=== PATIENT | male | born 1940 | race African-American/Black ===

== ENCOUNTER 2017-04-21 08:16 | Inpatient (IN) | payer MEDICARE, OTHER ==
[2017-04-21] MEDS ORDERED: SODIUM CHLORIDE 500 ML IV STA ×2 (09:01→10:21)
--- NOTE | 2017-04-21 09:01 | PDOC ---
History of Present Illness - General Chief Complaint: Lightheaded Stated Complaint: FALL Time Seen by Provider: 04/21/17 08:34 History Source: Patient - History of Present Illness Presenting Symptoms: Near-Syncope Past History - Past Medical History Allergies/Adverse Reactions: Allergies Allergy/AdvReac Type Severity Reaction Status Date / Time No Known Allergies Allergy Verified 04/21/17 09:43 Home Medications: Ambulatory Orders NK [No Known Home Medication] 04/21/17 Cardiac Disorders: Yes COPD: No - Suicide/Smoking/Psychosocial Hx Smoking History: Current every day smoker Have you smoked in the past 12 months: Yes Number of Cigarettes Smoked Daily: 20 Information on smoking cessation initiated: No Hx Alcohol Use: No Drug/Substance Use Hx: No Substance Use Type: None Review of Systems - Review of Systems Constitutional: Yes: Fever Respiratory: Yes: Cough. No: Shortness of Breath, Wheezing Cardiac (ROS): Yes: Lightheadedness. No: Chest Pain, Palpitations ABD/GI: No: Diarrhea, Nausea, Vomiting : No: Dysuria Neurological: Yes: Dizziness. No: Headache, Numbness, Tingling, Weakness *Physical Exam - Vital Signs Last Vital Signs Temp Pulse Resp BP Pulse Ox 97.6 F 120 H 20 126/99 04/21/17 08:32 04/21/17 08:32 04/21/17 08:32 04/21/17 08:32 - Physical Exam General Appearance: Yes: Appropriately Dressed. No: Apparent Distress HEENT: positive: Normal Voice. negative: Scleral Icterus (R), Scleral Icterus ( L) Neck: positive: Supple Respiratory/Chest: positive: Lungs Clear, Normal Breath Sounds. negative: Respiratory Distress Cardiovascular: positive: S1, S2, Tachycardia Gastrointestinal/Abdominal: positive: Soft. negative: Tender Integumentary: positive: Dry, Warm Neurologic: positive: Fully Oriented, Alert, Normal Mood/Affect Heart Score/ECG Review - ECG Intrepretation Comment:: 04/21/17 11:21 Sinus tachycardia ED Treatment Course - LABORATORY CBC & Chemistry Diagram: 04/21/17 09:40 04/21/17 09:40 - ADDITIONAL ORDERS Additional order review: Laboratory Results 04/21/17 09:40 Sodium 133 L Potassium 4.8 Chloride 98 Carbon Dioxide 24 Anion Gap 11 BUN 37 H Creatinine 1.8 H Creat Clearance w eGFR 36.77 Random Glucose 108 H Calcium 8.6 Total Bilirubin 0.8 AST 48 H ALT 29 Alkaline Phosphatase 58 Creatine Kinase 296 Creatine Kinase Index 0.6 CK-MB (CK-2) 1.864 Troponin I < 0.02 Total Protein 7.5 Albumin 3.4 04/21/17 09:22 Influenza Types A,B Antigen (GABRIELLA) - Final Nasopharyngeal Swab - Final 04/21/17 09:40 RBC 4.92 MCV 91.8 MCHC 32.2 RDW 13.7 MPV 8.5 Neutrophils % 84.6 H Lymphocytes % 6.8 L Monocytes % 8.0 Eosinophils % 0.2 Basophils % 0.4 - RADIOLOGY Radiology Studies Ordered: Category Date Time Status HEAD CT WITHOUT CONTRAST [CT] Stat CT Scan 04/21/17 08:56 Ordered CHEST PA & LAT [RAD] Stat Radiology 04/21/17 08:55 Taken Medical Decision Making - Medical Decision Making 04/21/17 08:56 76-year-old male over [id number] history, possible CAD, here with near syncope. Patient reports waking up in his usual state of health this morning and states while shaving at the bathroom sink, he became lightheaded and fell to the ground landing in mostly a sitting position landed up against the wall. Denies hitting head, LOC, headache, nausea, vomiting, visual changes, focal weakness and no chest pain, shortness of breath or wheezing. Denies similar episode in the past. Family member in ED and states since yesterday, patient has had a dry cough with hoarseness and fever of 102. Has since given patient tylenol. Patient denies body aches, nausea, vomiting or diarrhea. See exam Near syncope R/o cardiac vs infectious vs metabolic, less likely neuro Tachy to 120 but afebrile w/ clear chest/lungs otherwise -ekg -cxr -labs -gentle hydration -anticipate admission 04/21/17 11:22 Pt flu A+ w/ creatinine to 1.8. Patient states he has no known history of renal disease. M/l represent SHAUNNA 2/2 dehydration. Will contact PMD and admit 04/21/17 11:57 Case d/w Dr Perez and pt admitted to [facility] as d/w *DC/Admit/Observation/Transfer Diagnosis at time of Disposition: Influenza A Acute renal failure Qualifiers: Acute renal failure type: unspecified Qualified Code(s): N17.9 - Acute kidney failure, unspecified - Discharge Dispostion Condition at time of disposition: Fair Admit: Yes Decision to Admit order Date/Time: Decision to Admit Order Category Date Time Status Decision to Admit to Hospital Routine Admission 04/21/17 11:57 Ordered - Referrals Referrals: Nile Lu MD [Primary Care Provider] - - Patient Instructions - Post Discharge Activity
[2017-04-21 09:48] LABS: MEAN CELL VOLUME 91.8 fl (80-96); MEAN PLT VOLUME 8.5 fl (7.5-11.1)
[2017-04-21 09:54] LABS: BASO % 0.4 % (0-2.0); EOS % 0.2 % (0-4.5); HEMATOCRIT 45.2 % (35.4-49); HEMOGLOBIN 14.5 GM/dL (11.7-16.9); LYMPH % 6.8 % (8-40); MCH 29.5 pg (25.7-33.7); MCHC 32.2 g/dl (32.0-35.9); NEUT % 84.6 % (42.8-82.8); PLATELET COUNT 122 K/MM3 (134-434); RBC 4.92 M/mm3 (4.00-5.60); RDW 13.7 % (11.9-15.9); WHITE BLOOD COUNT 9.2 K/mm3 (4.0-10.0)
[2017-04-21 10:11] LABS: ALBUMIN 3.4 g/dl (3.4-5.0); ANION GAP 11 (8-16); BLOOD UREA NITROGEN 37 mg/dL (7-18); CALCIUM 8.6 mg/dL (8.5-10.1); CHLORIDE 98 mmol/L (98-107); CO2 24 mmol/L (21-32); CREATININE 1.8 mg/dL (0.7-1.3); GLUCOSE,RANDOM 108 mg/dL (74-106); SGPT/ALT 29 U/L (12-78); SODIUM 133 mmol/L (136-145); TOT PROT 7.5 g/dl (6.4-8.2)
[2017-04-21 10:19] LABS: ALK PHOS 58 U/L (45-117); BILIRUBIN,TOTAL 0.8 mg/dL (0.2-1.0)
[2017-04-21 10:20] LABS: POTASSIUM 4.8 mmol/L (3.5-5.1); SGOT/AST 48 U/L (15-37)
[2017-04-21] MEDS ORDERED: OSELTAMIVIR PHOSPHATE 75 MG CAPSULE PO ONE (10:21)
--- NOTE | 2017-04-21 11:57 | PDOC ---
*Physical Exam - Vital Signs Last Vital Signs Temp Pulse Resp BP Pulse Ox 97.6 F 120 H 20 126/99 04/21/17 08:32 04/21/17 08:32 04/21/17 08:32 04/21/17 08:32 ED Treatment Course - LABORATORY CBC & Chemistry Diagram: 04/21/17 09:40 04/21/17 09:40 - ADDITIONAL ORDERS Additional order review: Laboratory Results 04/21/17 09:40 Sodium 133 L Potassium 4.8 Chloride 98 Carbon Dioxide 24 Anion Gap 11 BUN 37 H Creatinine 1.8 H Creat Clearance w eGFR 36.77 Random Glucose 108 H Calcium 8.6 Total Bilirubin 0.8 AST 48 H ALT 29 Alkaline Phosphatase 58 Creatine Kinase 296 Creatine Kinase Index 0.6 CK-MB (CK-2) 1.864 Troponin I < 0.02 Total Protein 7.5 Albumin 3.4 04/21/17 09:22 Influenza Types A,B Antigen (GABRIELLA) - Final Nasopharyngeal Swab - Final 04/21/17 09:40 RBC 4.92 MCV 91.8 MCHC 32.2 RDW 13.7 MPV 8.5 Neutrophils % 84.6 H Lymphocytes % 6.8 L Monocytes % 8.0 Eosinophils % 0.2 Basophils % 0.4 - RADIOLOGY Radiology Studies Ordered: Category Date Time Status HEAD CT WITHOUT CONTRAST [CT] Stat CT Scan 04/21/17 08:56 Ordered CHEST PA & LAT [RAD] Stat Radiology 04/21/17 08:55 Taken *DC/Admit/Observation/Transfer Diagnosis at time of Disposition: Influenza A Acute renal failure Qualifiers: Acute renal failure type: unspecified Qualified Code(s): N17.9 - Acute kidney failure, unspecified - Discharge Dispostion Condition at time of disposition: Fair Admit: Yes - Referrals - Patient Instructions - Post Discharge Activity
[2017-04-21] MEDS ORDERED: OSELTAMIVIR PHOSPHATE 75 MG CAPSULE ONE (12:14)
[2017-04-21 12:59] LABS: N-TERMINAL BNP 343.17 pg/ml (5-450)
[2017-04-21 17:54] LABS: URINE APPEARANCE CLEAR; URINE BILIRUBIN NEGATIVE (NEGATIVE); URINE BLOOD 1+ (NEGATIVE); URINE COLOR LTYELLOW; URINE GLUCOSE (UA) NEGATIVE (NEGATIVE); URINE KETONE TRACE (NEGATIVE); URINE LEUK ESTERASE NEGATIVE (NEGATIVE); URINE NITRITE NEGATIVE (NEGATIVE); URINE UROBILINOGEN NEGATIVE mg/dL (0.2-1.0)
[2017-04-21 17:56] LABS: URINE PROTEIN 2+ (NEGATIVE)
[2017-04-21 18:04] LABS: EPI CELLS RARE /HPF (FEW); URINE BACTERIA FEW /hpf (NONE SEEN); URINE HYALINE CAST 1 /lpf; URINE MUCUS RARE
--- NOTE | 2017-04-21 21:43 | EKG ---
Test Reason : Blood Pressure : / mmHG Vent. Rate : 106 BPM Atrial Rate : 106 BPM P-R Int : 114 ms QRS Dur : 062 ms QT Int : 316 ms P-R-T Axes : 086 -65 063 degrees QTc Int : 419 ms SINUS TACHYCARDIA BIATRIAL ENLARGEMENT LEFT AXIS DEVIATION NONSPECIFIC ST AND T WAVE ABNORMALITY ABNORMAL ECG NO PREVIOUS ECGS AVAILABLE Confirmed by ADELAIDE OLSON MD ([id number]) on 04/21/2017 9:43:25 PM Referred By: Confirmed By:ADELAIDE OLSON MD
[2017-04-21] MEDS ORDERED: ACETAMINOPHEN 325 MG TABLET (FP) PO PRN (21:47)
--- NOTE | 2017-04-21 21:48 | HP ---
Admitting History and Physical - Admission History of Present Illness: 76-year-old male over [id number] history, possible CAD, here with near syncope. Patient reports waking up in his usual state of health this morning and states while shaving at the bathroom sink, he became lightheaded and fell to the ground landing in mostly a sitting position landed up against the wall. Denies hitting head, LOC, headache, nausea, vomiting, visual changes, focal weakness and no chest pain, shortness of breath or wheezing. Denies similar episode in the past. Family member in ED and states since yesterday, patient has had a dry cough with hoarseness and fever of 102. Has since given patient tylenol. Patient denies body aches, nausea, vomiting or diarrhea. See exam - Smoking History Smoking history: Current every day smoker Have you smoked in the past 12 months: Yes Aproximately how many cigarettes per day: 20 - Alcohol/Substance Use Hx Alcohol Use: No Home Medications - Allergies Allergies/Adverse Reactions: Allergies Allergy/AdvReac Type Severity Reaction Status Date / Time No Known Allergies Allergy Verified 04/21/17 09:43 - Home Medications Home Medications: Ambulatory Orders Acetaminophen [Tylenol .Regular Strength -] 650 mg PO Q6H PRN tablet 04/25/17 Amlodipine Besylate [Norvasc -] 10 mg PO DAILY #30 tablet 04/25/17 Aspirin [ASA -] 81 mg PO DAILY tab.chew 04/25/17 Lactose-Reduced Food [Ensure Enlive] 1 bottle PO DAILY #24 bottle 04/25/17 Nicotine Patch [Nicoderm Patch -] 21 mg TD DAILY #14 patch 04/25/17 Oseltamivir Phosphate [Tamiflu -] 30 mg PO BID #3 capsule 04/25/17 Review of Systems - Review of Systems Constitutional: reports: Chills, Fever Cardiovascular: reports: No Symptoms Respiratory: reports: Cough Genitourinary: reports: No Symptoms Physical Examination Vital Signs: Vital Signs Temperature 98.3 F 04/21/17 17:21 Pulse Rate 102 H 04/21/17 17:21 Respiratory Rate 16 04/21/17 17:21 Blood Pressure 158/103 04/21/17 17:21 O2 Sat by Pulse Oximetry (%) 96 04/21/17 17:21 Constitutional: Yes: Calm Cardiovascular: Yes: Regular Rate and Rhythm Respiratory: Yes: Regular, CTA Bilaterally Gastrointestinal: Yes: Normal Bowel Sounds, Soft Labs: CBC, BMP 04/21/17 09:40 04/21/17 09:40 Problem List - Problems (1) Acute renal failure Code(s): N17.9 - ACUTE KIDNEY FAILURE, UNSPECIFIED Qualifiers: Acute renal failure type: unspecified Qualified Code(s): N17.9 - Acute kidney failure, unspecified (2) HTN (hypertension) Code(s): I10 - ESSENTIAL (PRIMARY) HYPERTENSION (3) Syncope Code(s): R55 - SYNCOPE AND COLLAPSE Qualifiers: Encounter type: initial encounter Assessment/Plan Fever/URI Assessment/Plan: Start IV abx/ antipyretics Consult ID Syncope/Acute Renal Failure Assessment/Plan: Continue IVF Monitor Electrolytes BP HTN (hypertension) continue medications
[2017-04-21] MEDS ORDERED: OSELTAMIVIR PHOSPHATE 75 MG CAPSULE PO SCH (22:00)
[2017-04-21] MEDS: DEXTROSE 5%-0.45% SALINE 1,000 ML IV SCH (22:19)
[2017-04-21 22:44] VITALS: BMI 15.5
[2017-04-22 07:25] LABS: BASO % 0.2 % (0-2.0); EOS % 0.1 % (0-4.5); HEMATOCRIT 37.1 % (35.4-49); LYMPH % 17.1 % (8-40); MCH 29.2 pg (25.7-33.7); MCHC 32.5 g/dl (32.0-35.9); MEAN CELL VOLUME 89.8 fl (80-96); MONO % 13.6 % (3.8-10.2); PLATELET COUNT 121 K/MM3 (134-434); RBC 4.13 M/mm3 (4.00-5.60); RDW 13.4 % (11.9-15.9); WHITE BLOOD COUNT 5.3 K/mm3 (4.0-10.0)
[2017-04-22 07:35] LABS: ALBUMIN 2.9 g/dl (3.4-5.0); ANION GAP 10 (8-16); BILIRUBIN,TOTAL 0.6 mg/dL (0.2-1.0); BLOOD UREA NITROGEN 29 mg/dL (7-18); CALCIUM 8.1 mg/dL (8.5-10.1); CHLORIDE 98 mmol/L (98-107); CO2 27 mmol/L (21-32); CREATININE 1.3 mg/dL (0.7-1.3); GLUCOSE,RANDOM 92 mg/dL (74-106); POTASSIUM 4.1 mmol/L (3.5-5.1); SGOT/AST 38 U/L (15-37); SGPT/ALT 22 U/L (12-78); SODIUM 135 mmol/L (136-145); TOT PROT 6.1 g/dl (6.4-8.2)
[2017-04-22 07:36] LABS: ALK PHOS 47 U/L (45-117)
--- NOTE | 2017-04-22 09:33 | CON.CARD ---
Consult Consult Specialty:: Cardiology Referred by:: Dr. Perez Reason for Consultation:: Syncope - History of Present Illness Chief Complaint: "I must have passed out at home" History of Present Illness: 76M w/ h/o Prostate CA s/p seeds, smoker, recently seen in office for evaluation of MALONEY. Echo showed a wall motion abnormality and subsequent stress MIBI revealed low post stress EF for which he was referred fro cath. He missed his appointment at [facility] last week, due to inclement weather. No admitted with syncopal episode at home in setting of cough, fever, + Influenza A. He denies CP, SOB but does have cough. No palps. No edema. No focal neuro deficits. Head CT negative for acute pathology. 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: Alzheimer's, CVA, Dementia, Migraine, Multiple Sclerosis, Peripheral Neuropathy, Parkinson's, Seizure, Syncope, TIA, Vertigo, Other Cardio/Vascular: No: AFIB, Aneurysm, Aortic Insufficiency, Aortic Stenosis, CAD , CHF, Deep Vein Thrombosis, HTN, Hyperlipdemia, [place], Mitral Insufficiency, Mitral Stenosis, Murmur, Pulmonary Hypertension, Other Pulmonary: Yes: COPD Gastrointestinal: No: Ascites, Cancer, Constipation, Crohn's Disease, Diverticulitis, Diverticulosis, Esophageal Varices, Gastritis, GERD, GI Bleed, Hemorrhoids, Hiatal Hernia, Inflamatory Bowel Disease, Irritable Bowel Disease, Pancreatitis, Peptic Ulcer Disease, Ulcerative Colitis, Other Hepatobiliary: No: Cirrhosis, Cholelithiasis, Cholecystitis, Choledocholithiasis , Hepatitis A, Hepatitis B, Hepatitis C, Other Renal/: No: Renal Failure, Renal Inusuff, BPH, Cancer, Hematuria, Hemodialysis , Neurogenic Bladder, Renal Calculi, UTI, Other Heme/Onc: Yes: Other (Prostate CA ) Infectious Disease: No: AIDS, C-Diff, Herpes Zoster, HIV, MRSA, STD's, Tuberculosis, VREF, Other Psych: No: Addictions, Anxiety, Bipolar, Depression, Panic, Psychosis, Schizophrenia, Other Musculoskeletal: No: Bursitis, Chronic low back pain, Hemiparesis, Hemiplegia, Osteoarthritis, Paraplegia, Other Rheumatology: No: Fibromyalgia, Gout, Lupus, Rheumatoid Arthritis, Sarcoidosis, Vasculitis, Other ENT: No: Allergic Rhinitis, Sinusitis, Other Endocrine: No: [place]'s Disease, Lucy's Disease, Diabetes Insipidus, Diabetes Mellitus, Hyperparathyroidism, Hyperthyroidism, Hypothyroidism, Osteopenia, SIADH, Other Dermatology: No: Basal Cell, Cellulitis, Eczema, Melanoma, Psoriasis, Squamous Cell, Other - Past Surgical History Past Surgical History: No: None, AAA Repair, AICD, Amputation, Appendectomy, Arthrosocopy, AV Fistula/Graft, Bariatric Surgery, Breast Biopsy, Bypass, CABG, Carotid Endarterectomy, Cataract Removal, Cholecystectomy, Colectomy, Colonoscopy, Colostomy, Craniotomy, , Cystectomy, Hernia Repair, Hysterectomy, Ileal Conduit, Ileosotomy, Joint Replacement, Kidney Transplant, Laminectomy, Liver Transplant, Mastectomy, Nephrectomy, Oopherectomy, Orchiectomy, Permanent Pacemaker, Prostatectomy, Splenectomy, Stent, Thoracotomy , TURP, Tonsillectomy, Tubal Ligation, Upper Endoscopy, Valve Replacement, Vasectomy, Vein Stripping/Ligation - Alcohol/Substance Use Hx Alcohol Use: Yes (quit 20 years) - Smoking History Smoking history: Former smoker Have you smoked in the past 12 months: Yes Aproximately how many cigarettes per day: 20 If you are a former smoker, when did you quit?: 04/17/2017 - Social History Usual Living Arrangement: With Spouse Place of : [facility] History of Recent Travel: No Home Medications - Allergies Allergies/Adverse Reactions: Allergies Allergy/AdvReac Type Severity Reaction Status Date / Time No Known Allergies Allergy Verified 04/21/17 09:43 - Home Medications Home Medications: Ambulatory Orders NK [No Known Home Medication] 04/21/17 Family Disease History - Family Disease History Family History: Unremarkable (not pertinent to this presentation) Review of Systems Findings/Remarks: see HPI - Review of Systems Constitutional: reports: Malaise, Weakness Eyes: denies: No Symptoms, Blind Spots, Blurred Vision, Double Vision, Eye Pain , Floaters, Photophobia, Recent Change in Vision, Other Cardiovascular: reports: No Symptoms Respiratory: reports: Cough, SOB on Exertion (chronic MALONEY) Gastrointestinal: denies: No Symptoms, Abdominal Pain, Bloating, Constipation, Diarrhea, Dysphagia, Indigestion, Melena, Nausea, Rectal Bleeding, Vomiting, Vomiting Blood, Other Genitourinary: denies: No Symptoms, Burning, Discharge, Dysuria, Flank Pain, Frequency, Hematuria, Incontinence, Lesions, Menses, Pain, Testicular Mass, Testicular Pain, Testicular Swelling, Urgency, Vaginal Bleeding, Other Breasts: denies: No Symptoms Reported, See HPI, Breast Implants, Discharge from Nipple, Lumps, Pain, Skin Changes, Other Musculoskeletal: reports: Muscle Pain Integumentary: denies: No Symptoms, Blister, Bruising, Change in Color, Eczema, Erythema, Incision, Lesions, Lump, Pallor, Pruritis, Rash, Wound, Other Neurological: denies: No Symptoms, Change in LOC, Change in Speech, Confusion, Dizziness, Headache, Incoordination, Numbness, Parasthesia, Pre-Existing Deficit , Seizure, Syncope, Tremors, Unsteady Gait, Weakness, Other Endocrine: denies: No Symptoms, Excessive Sweating, Flushing, Increased Hunger, Increased Thirst, Intolerance to Cold, Intolerance to Heat, Unexplained Weight Gain, Unexplained Weight Loss, Other Hematology/Lymphatic: denies: No Symptoms, Easily Bruised, Excessive Bleeding, Swollen Glands, Other Psychiatric: denies: No Symptoms, Altered Sleep Pattern, Anxiety, Depression, Hallucinations, Panic, Paranoia, Suicidal, Other - Risk Factors Known Risk Factors: Yes: Smoking Vital Signs: Vital Signs Temperature 98.6 F 04/22/17 08:27 Pulse Rate 93 H 04/22/17 08:27 Respiratory Rate 20 04/22/17 08:28 Blood Pressure 130/77 04/22/17 08:27 O2 Sat by Pulse Oximetry (%) 98 04/22/17 08:28 Constitutional: Yes: No Distress, Calm Eyes: Yes: Conjunctiva Clear, EOM Intact HENT: Yes: Atraumatic Neck: Yes: Supple Respiratory: Yes: Rhonchi Gastrointestinal: Yes: Soft Cardiovascular: Yes: Regular Rate and Rhythm JVD: No Carotid Bruit: No PMI: Non-Displaced Heart Sounds: Yes: S1, S2 (RRR) Edema: No Neurological: Yes: Alert, Oriented ...Motor Strength: WNL - Other Data Labs, Other Data: CBC, BMP 04/22/17 05:35 04/22/17 05:35 Troponin, BNP 04/21/17 09:40 Troponin I < 0.02 B-Natriuretic Peptide 343.17 Troponin, BNP 04/21/17 09:40 Troponin I < 0.02 B-Natriuretic Peptide 343.17 NSR, LVH, NSST changes, Left [place]. Biatrial enlargement. Echo: Pending Holter: Other (TELE: NSR, NSST changes, APCs) Imaging - Results Chest X-ray: Report Reviewed, Image Reviewed Cat Scan: Report Reviewed EKG: Image Reviewed Problem List - Problems (1) Influenza A Assessment/Plan: -Supportive care and Rx as per PMD -Blood cultures pending Code(s): J10.1 - FLU DUE TO OTH IDENT INFLUENZA VIRUS W OTH RESP MANIFEST (2) Syncope Assessment/Plan: - in setting of acute Influenza A, fever, pre-renal azotemia -Check orthostatics, gently hydrate -Tele x 24 hours rule out arrhythmia (given h/o cardiomyopathy) Code(s): R55 - SYNCOPE AND COLLAPSE Qualifiers: Encounter type: initial encounter (3) Cardiomyopathy Assessment/Plan: -Referred for outpatient cath, which will be rescheduled to rule out chronic ischemic disease -ASA 81mg daily Code(s): I42.9 - CARDIOMYOPATHY, UNSPECIFIED Qualifiers: Cardiomyopathy type: unspecified Qualified Code(s): I42.9 - Cardiomyopathy , unspecified (4) Acute renal failure Assessment/Plan: -Likely due to dehydration secondary to infection with Influenza A -Renal fxn improved with hydration Code(s): N17.9 - ACUTE KIDNEY FAILURE, UNSPECIFIED Qualifiers: Acute renal failure type: unspecified Qualified Code(s): N17.9 - Acute kidney failure, unspecified Assessment/Plan 76 male with h/o prostate CA, COPD, cardiomyopathy now admitted with a syncopal episode in the setting of acute Influenza A with fever and pre-renal failure secondary to dehydration precipitated by infection. Doubt syncopal episode was cardiac in nature, however, he does have an underlying cardiomyopathy for which outpatient catheterization was recommended and is in the process of being arranged to rule out chronic ischemic disease. REC: Gentle hydration. Supportive care. Tamiflu as per PMD. R/o concurrent bacterial infection: doubtful. 24 hours telemetry to exclude arrhythmia, also unlikely in this setting. 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
[2017-04-22] MEDS: ASPIRIN 81 MG CHEWABLE TABLETS PO SCH (12:55)
[2017-04-22] MEDS: OSELTAMIVIR PHOSPHATE 30 MG CAPSULE PO SCH ×2 (12:55→21:04)
--- NOTE | 2017-04-22 14:22 | CON.ID ---
Consult Consult Specialty:: infectious diseases Referred by:: Reason for Consultation:: influenz,weakness,near syncope - History of Present Illness Chief Complaint: syncope weakness History of Present Illness: 76-year-old male over [id number] history, CAD, came to the ED with near syncope. Patient reports waking up in his usual state of health this morning and states while shaving at the bathroom sink, he became lightheaded and fell to the ground landing in mostly a sitting position landed up against the wall. Denies hitting head, LOC, headache, nausea, vomiting, visual changes, focal weakness and no chest pain, shortness of breath or wheezing. 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, CVA, Dementia, Migraine, Multiple Sclerosis, Peripheral Neuropathy, Parkinson's, Seizure, Syncope, TIA, Vertigo, Other Cardio/Vascular: No: AFIB, Aneurysm, Aortic Insufficiency, Aortic Stenosis, CAD , CHF, Deep Vein Thrombosis, HTN, Hyperlipdemia, [place], Mitral Insufficiency, Mitral Stenosis, Murmur, Pulmonary Hypertension, Other Pulmonary: Yes: COPD Gastrointestinal: No: Ascites, Cancer, Constipation, Crohn's Disease, Diverticulitis, Diverticulosis, Esophageal Varices, Gastritis, GERD, GI Bleed, Hemorrhoids, Hiatal Hernia, Inflamatory Bowel Disease, Irritable Bowel Disease, Pancreatitis, Peptic Ulcer Disease, Ulcerative Colitis, Other Hepatobiliary: No: Cirrhosis, Cholelithiasis, Cholecystitis, Choledocholithiasis , Hepatitis A, Hepatitis B, Hepatitis C, Other Renal/: No: Renal Failure, Renal Inusuff, BPH, Cancer, Hematuria, Hemodialysis , Neurogenic Bladder, Renal Calculi, UTI, Other Infectious Disease: No: AIDS, C-Diff, Herpes Zoster, HIV, MRSA, STD's, Tuberculosis, VREF, Other Psych: No: Addictions, Anxiety, Bipolar, Depression, Panic, Psychosis, Schizophrenia, Other Musculoskeletal: No: Bursitis, Chronic low back pain, Hemiparesis, Hemiplegia, Osteoarthritis, Paraplegia, Other Rheumatology: No: Fibromyalgia, Gout, Lupus, Rheumatoid Arthritis, Sarcoidosis, Vasculitis, Other ENT: No: Allergic Rhinitis, Sinusitis, Other Endocrine: No: Myron's Disease, Lucy's Disease, Diabetes Insipidus, Diabetes Mellitus, Hyperparathyroidism, Hyperthyroidism, Hypothyroidism, Osteopenia, SIADH, Other Dermatology: No: Basal Cell, Cellulitis, Eczema, Melanoma, Psoriasis, Squamous Cell, Other - Past Surgical History Past Surgical History: No: None, AAA Repair, AICD, Amputation, Appendectomy, Arthrosocopy, AV Fistula/Graft, Bariatric Surgery, Breast Biopsy, Bypass, CABG, Carotid Endarterectomy, Cataract Removal, Cholecystectomy, Colectomy, Colonoscopy, Colostomy, Craniotomy, , Cystectomy, Hernia Repair, Hysterectomy, Ileal Conduit, Ileosotomy, Joint Replacement, Kidney Transplant, Laminectomy, Liver Transplant, Mastectomy, Nephrectomy, Oopherectomy, Orchiectomy, Permanent Pacemaker, Prostatectomy, Splenectomy, Stent, Thoracotomy , TURP, Tonsillectomy, Tubal Ligation, Upper Endoscopy, Valve Replacement, Vasectomy, Vein Stripping/Ligation - Alcohol/Substance Use Hx Alcohol Use: Yes (quit 20 years) - Smoking History Smoking history: Former smoker Have you smoked in the past 12 months: Yes Aproximately how many cigarettes per day: 20 If you are a former smoker, when did you quit?: 04/17/2017 - Social History Usual Living Arrangement: With Spouse History of Recent Travel: No Home Medications - Allergies Allergies/Adverse Reactions: Allergies Allergy/AdvReac Type Severity Reaction Status Date / Time No Known Allergies Allergy Verified 04/21/17 09:43 - Home Medications Home Medications: Ambulatory Orders NK [No Known Home Medication] 04/21/17 Review of Systems - Review of Systems Constitutional: reports: Fever Eyes: reports: No Symptoms HENT: reports: No Symptoms Neck: reports: No Symptoms Cardiovascular: reports: No Symptoms Respiratory: reports: Cough, Other Gastrointestinal: reports: No Symptoms Genitourinary: reports: No Symptoms Breasts: reports: No Symptoms Reported Musculoskeletal: reports: No Symptoms Integumentary: reports: No Symptoms Neurological: reports: Other (confusion) Endocrine: reports: No Symptoms Hematology/Lymphatic: reports: No Symptoms Psychiatric: reports: No Symptoms Physical Exam Vital Signs: Vital Signs Temperature 98.6 F 04/22/17 08:27 Pulse Rate 93 H 04/22/17 08:27 Respiratory Rate 20 04/22/17 08:28 Blood Pressure 130/77 04/22/17 08:27 O2 Sat by Pulse Oximetry (%) 98 04/22/17 08:28 Constitutional: Yes: Thin, Other Eyes: Yes: Conjunctiva Clear HENT: Yes: Atraumatic Neck: Yes: Supple, Trachea Midline Cardiovascular: Yes: Regular Rate and Rhythm Respiratory: Yes: Rhonchi, Other (crackles) Gastrointestinal: Yes: Normal Bowel Sounds, Soft Extremities: Yes: Other Labs: CBC, BMP 04/22/17 05:35 04/22/17 05:35 Imaging - Results Chest X-ray: Report Reviewed, Image Reviewed Cat Scan: Report Reviewed, Image Reviewed Assessment/Plan at this moment this patient is not showing any signs of resp infection,but i am very worried looking at this pmhx and also coming in with syncope symptoms influenza a fever near syncope confusion plan will start patient on empiric ceftriaxone await for all cx reports hydration rest as per cardio and primary
[2017-04-22] MEDS: amLODIPine BESYLATE 5 MG TABLET (FP) PO SCH (17:50)
[2017-04-22] MEDS: NICOTINE 21 MG/24 HOURS TOPICAL PATCH TD SCH (17:50)
[2017-04-22] MEDS ORDERED: PT OWN MED DRAWER 7, Y5N ONE (20:57)
[2017-04-22] MEDS ORDERED: CEFTRIAXONE 1 GM in DEXTROSE 5%-WATER - 50 ML IVPB SCH (22:00)
[2017-04-22] MEDS ORDERED: AMOX TR/POT CLAV 500MG/125MG TABLETS (FP) PO ONE (22:15)
[2017-04-22] MEDS: CEFTRIAXONE 1 G/50 ML PREMIX 50 ML IVPB SCH (22:31)
[2017-04-22] MEDS: DEXTROSE 5%-0.45% SALINE 1,000 ML IV SCH (22:36)
--- NOTE | 2017-04-22 23:05 | PN ---
Progress Note, Physician History of Present Illness: No new complaints - Current Medication List Current Medications: Active Medications Acetaminophen (Tylenol -) 650 mg PO Q6H PRN PRN Reason: FEVER Last Admin: 04/22/17 01:39 Dose: 650 mg Amlodipine Besylate (Norvasc -) 5 mg PO DAILY [facility] Last Admin: 04/22/17 17:50 Dose: 5 mg Aspirin (Asa -) 81 mg PO DAILY [facility] Last Admin: 04/22/17 12:55 Dose: 81 mg Dextrose/Sodium Chloride (D5-1/2ns -) 1,000 mls @ 75 mls/hr IV ASDIR [facility] Last Admin: 04/22/17 22:36 Dose: 75 mls/hr CEFTRIAXONE 1 G/50 ML PREMIX (Ceftriaxone 1 Gm-D5w Bag) 50 mls @ 100 mls/hr IVPB DAILY [facility] Last Admin: 04/22/17 22:31 Dose: 100 mls/hr Nicotine (Nicoderm Patch -) 21 mg TD DAILY [facility] Last Admin: 04/22/17 17:50 Dose: 21 mg Oseltamivir Phosphate (Tamiflu -) 30 mg PO BID [facility] Stop: 04/27/17 09:59 Last Admin: 04/22/17 21:04 Dose: 30 mg - Objective Vital Signs: Vital Signs Temperature 97.3 F L 04/22/17 17:00 Pulse Rate 97 H 04/22/17 17:00 Respiratory Rate 20 04/22/17 17:00 Blood Pressure 164/108 04/22/17 17:00 O2 Sat by Pulse Oximetry (%) 98 04/22/17 08:28 Constitutional: Yes: No Distress Cardiovascular: Yes: Regular Rate and Rhythm Respiratory: Yes: Regular, CTA Bilaterally Gastrointestinal: Yes: Normal Bowel Sounds, Soft Labs: CBC, BMP 04/22/17 05:35 04/22/17 05:35 Assessment/Plan Fever/URI Assessment/Plan: Cont IV abx/ antipyretics As per ID Syncope/Acute Renal Failure Assessment/Plan: Continue IVF Monitor Electrolytes BP HTN (hypertension) continue medications
[2017-04-23] MEDS: amLODIPine BESYLATE 10 MG TABLET (FP) PO SCH ×2 (09:30→11:51)
--- NOTE | 2017-04-23 09:40 | PN ---
Progress Note, Physician Chief Complaint: Comfortable, no distress TELE: NSR BP was elevated last evening, responded to Norvasc Was agitated last night, improved with Nicotine patch - Current Medication List Current Medications: Active Medications Acetaminophen (Tylenol -) 650 mg PO Q6H PRN PRN Reason: FEVER Last Admin: 04/22/17 01:39 Dose: 650 mg Amlodipine Besylate (Norvasc -) 5 mg PO DAILY [facility] Last Admin: 04/22/17 17:50 Dose: 5 mg Aspirin (Asa -) 81 mg PO DAILY [facility] Last Admin: 04/22/17 12:55 Dose: 81 mg Dextrose/Sodium Chloride (D5-1/2ns -) 1,000 mls @ 75 mls/hr IV ASDIR [facility] Last Admin: 04/22/17 22:36 Dose: 75 mls/hr CEFTRIAXONE 1 G/50 ML PREMIX (Ceftriaxone 1 Gm-D5w Bag) 50 mls @ 100 mls/hr IVPB DAILY [facility] Last Admin: 04/22/17 22:31 Dose: 100 mls/hr Nicotine (Nicoderm Patch -) 21 mg TD DAILY [facility] Last Admin: 04/22/17 17:50 Dose: 21 mg Oseltamivir Phosphate (Tamiflu -) 30 mg PO BID [facility] Stop: 04/27/17 09:59 Last Admin: 04/22/17 21:04 Dose: 30 mg - Objective Vital Signs: Vital Signs Temperature 98.3 F 04/23/17 06:02 Pulse Rate 100 H 04/23/17 06:02 Respiratory Rate 20 04/23/17 06:02 Blood Pressure 151/97 04/23/17 06:02 O2 Sat by Pulse Oximetry (%) 93 L 04/22/17 21:00 Constitutional: Yes: No Distress Cardiovascular: Yes: Regular Rate and Rhythm Respiratory: Yes: CTA Bilaterally Gastrointestinal: Yes: Soft Edema: No Neurological: Yes: Alert, Oriented Labs: CBC, BMP 04/22/17 05:35 04/22/17 05:35 Laboratory Tests 04/22/17 04/22/17 05:35 05:35 WBC 5.3 D RBC 4.13 Plt Count 121 L Sodium 135 L Potassium 4.1 Creatinine 1.3 D - ....Imaging EKG: Image Reviewed Problem List - Problems (1) Influenza A Code(s): J10.1 - FLU DUE TO OTH IDENT INFLUENZA VIRUS W OTH RESP MANIFEST (2) Syncope Code(s): R55 - SYNCOPE AND COLLAPSE Qualifiers: Encounter type: initial encounter (3) Cardiomyopathy Code(s): I42.9 - CARDIOMYOPATHY, UNSPECIFIED Qualifiers: Cardiomyopathy type: unspecified Qualified Code(s): I42.9 - Cardiomyopathy , unspecified (4) Acute renal failure Code(s): N17.9 - ACUTE KIDNEY FAILURE, UNSPECIFIED Qualifiers: Acute renal failure type: unspecified Qualified Code(s): N17.9 - Acute kidney failure, unspecified Assessment/Plan 76 male with h/o prostate CA, COPD, cardiomyopathy now admitted with a syncopal episode in the setting of acute Influenza A with fever and pre-renal failure secondary to dehydration precipitated by infection. Doubt syncopal episode was cardiac in nature, however, he does have an underlying cardiomyopathy for which outpatient catheterization was recommended and is in the process of being arranged to rule out chronic ischemic disease. REC: Creatinine improved w/ gentle hydration. Supportive care. Tamiflu as per PMD. R/o concurrent bacterial infection: doubtful. 24 hours telemetry to exclude arrhythmia has been negative, can d/c telemetry. 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 Outpatient follow up: PHTN likely chronic due to smoking and COPD.
[2017-04-23] MEDS ORDERED: PT OWN MED DRAWER 7, Y5N ONE ×2 (09:46→21:33)
[2017-04-23] MEDS: ASPIRIN 81 MG CHEWABLE TABLETS PO SCH (09:55)
[2017-04-23] MEDS: NICOTINE 21 MG/24 HOURS TOPICAL PATCH TD SCH (09:55)
[2017-04-23] MEDS: amLODIPine BESYLATE 5 MG TABLET (FP) PO SCH (09:55)
[2017-04-23] MEDS: CEFTRIAXONE 1 G/50 ML PREMIX 50 ML IVPB SCH (09:55)
[2017-04-23] MEDS: OSELTAMIVIR PHOSPHATE 30 MG CAPSULE PO SCH ×2 (09:55→21:35)
--- NOTE | 2017-04-23 15:03 | PN ---
Progress Note, Physician History of Present Illness: patient looks much better awake and alert - Current Medication List Current Medications: Active Medications Acetaminophen (Tylenol -) 650 mg PO Q6H PRN PRN Reason: FEVER Last Admin: 04/22/17 01:39 Dose: 650 mg Amlodipine Besylate (Norvasc -) 10 mg PO DAILY [facility] Last Admin: 04/23/17 11:51 Dose: Not Given Aspirin (Asa -) 81 mg PO DAILY [facility] Last Admin: 04/23/17 09:55 Dose: 81 mg Dextrose/Sodium Chloride (D5-1/2ns -) 1,000 mls @ 75 mls/hr IV ASDIR [facility] Last Admin: 04/22/17 22:36 Dose: 75 mls/hr CEFTRIAXONE 1 G/50 ML PREMIX (Ceftriaxone 1 Gm-D5w Bag) 50 mls @ 100 mls/hr IVPB DAILY [facility] Last Admin: 04/23/17 09:55 Dose: 100 mls/hr Nicotine (Nicoderm Patch -) 21 mg TD DAILY [facility] Last Admin: 04/23/17 09:55 Dose: 21 mg Oseltamivir Phosphate (Tamiflu -) 30 mg PO BID [facility] Stop: 04/27/17 09:59 Last Admin: 04/23/17 09:55 Dose: 30 mg - Objective Vital Signs: Vital Signs Temperature 98.8 F 04/23/17 13:15 Pulse Rate 93 H 04/23/17 13:15 Respiratory Rate 22 04/23/17 13:15 Blood Pressure 122/76 04/23/17 13:15 O2 Sat by Pulse Oximetry (%) 93 L 04/22/17 21:00 Constitutional: Yes: No Distress, Calm, Thin Cardiovascular: Yes: Regular Rate and Rhythm Respiratory: Yes: Regular, CTA Bilaterally Gastrointestinal: Yes: Normal Bowel Sounds, Soft Musculoskeletal: Yes: WNL Extremities: Yes: WNL Neurological: Yes: Alert, Oriented Psychiatric: Yes: Alert, Oriented Labs: CBC, BMP 04/22/17 05:35 04/22/17 05:35 Assessment/Plan patient was very confused last night,now looks completely normal influenza a fever near syncope confusion plan conitnue ceftriaxone continue current mgmt
[2017-04-23] MEDS: DEXTROSE 5%-0.45% SALINE 1,000 ML IV SCH (18:39)
--- NOTE | 2017-04-23 22:22 | PN ---
Progress Note, Physician History of Present Illness: Events of last night noted Pt w/ no complaints today - Current Medication List Current Medications: Active Medications Acetaminophen (Tylenol -) 650 mg PO Q6H PRN PRN Reason: FEVER Last Admin: 04/22/17 01:39 Dose: 650 mg Amlodipine Besylate (Norvasc -) 10 mg PO DAILY [facility] Last Admin: 04/23/17 11:51 Dose: Not Given Aspirin (Asa -) 81 mg PO DAILY [facility] Last Admin: 04/23/17 09:55 Dose: 81 mg Dextrose/Sodium Chloride (D5-1/2ns -) 1,000 mls @ 75 mls/hr IV ASDIR [facility] Last Admin: 04/23/17 18:39 Dose: 75 mls/hr CEFTRIAXONE 1 G/50 ML PREMIX (Ceftriaxone 1 Gm-D5w Bag) 50 mls @ 100 mls/hr IVPB DAILY [facility] Last Admin: 04/23/17 09:55 Dose: 100 mls/hr Nicotine (Nicoderm Patch -) 21 mg TD DAILY [facility] Last Admin: 04/23/17 09:55 Dose: 21 mg Oseltamivir Phosphate (Tamiflu -) 30 mg PO BID [facility] Stop: 04/27/17 09:59 Last Admin: 04/23/17 21:35 Dose: 30 mg - Objective Vital Signs: Vital Signs Temperature 97.3 F L 04/23/17 16:30 Pulse Rate 104 H 04/23/17 16:30 Respiratory Rate 20 04/23/17 16:30 Blood Pressure 144/83 04/23/17 16:30 O2 Sat by Pulse Oximetry (%) 96 04/23/17 09:00 Constitutional: Yes: No Distress Neck: Yes: WNL Cardiovascular: Yes: WNL, Regular Rate and Rhythm Respiratory: Yes: Diminished Gastrointestinal: Yes: WNL, Normal Bowel Sounds, Soft Edema: No Labs: CBC, BMP 04/22/17 05:35 04/22/17 05:35 Problem List - Problems (1) Fever Assessment/Plan: Resolved Cont IV ceftriaxone As per ID Possible dc planning Code(s): R50.9 - FEVER, UNSPECIFIED (2) Influenza A Code(s): J10.1 - FLU DUE TO OTH IDENT INFLUENZA VIRUS W OTH RESP MANIFEST (3) Syncope Assessment/Plan: W/U negative DC tele Code(s): R55 - SYNCOPE AND COLLAPSE Qualifiers: Encounter type: initial encounter (4) HTN (hypertension) Assessment/Plan: Cont [facility] Code(s): I10 - ESSENTIAL (PRIMARY) HYPERTENSION (5) Acute renal failure Assessment/Plan: Bun/creatinine improved Probably due to dehydration Code(s): N17.9 - ACUTE KIDNEY FAILURE, UNSPECIFIED Qualifiers: Acute renal failure type: unspecified Qualified Code(s): N17.9 - Acute kidney failure, unspecified
[2017-04-24] MEDS: NICOTINE 21 MG/24 HOURS TOPICAL PATCH TD SCH (10:49)
[2017-04-24] MEDS: amLODIPine BESYLATE 10 MG TABLET (FP) PO SCH (10:49)
[2017-04-24] MEDS: ASPIRIN 81 MG CHEWABLE TABLETS PO SCH (10:49)
[2017-04-24] MEDS: OSELTAMIVIR PHOSPHATE 30 MG CAPSULE PO SCH ×2 (10:50→21:05)
[2017-04-24] MEDS: CEFTRIAXONE 1 G/50 ML PREMIX 50 ML IVPB SCH (10:51)
--- NOTE | 2017-04-24 11:52 | PN ---
Progress Note, Physician History of Present Illness: seen and examined today in [facility]. states he is overall feeling better. no new complaints. - Current Medication List Current Medications: Active Medications Acetaminophen (Tylenol -) 650 mg PO Q6H PRN PRN Reason: FEVER Last Admin: 04/22/17 01:39 Dose: 650 mg Amlodipine Besylate (Norvasc -) 10 mg PO DAILY [facility] Last Admin: 04/24/17 10:49 Dose: 10 mg Aspirin (Asa -) 81 mg PO DAILY [facility] Last Admin: 04/24/17 10:49 Dose: 81 mg Dextrose/Sodium Chloride (D5-1/2ns -) 1,000 mls @ 75 mls/hr IV ASDIR [facility] Last Admin: 04/23/17 18:39 Dose: 75 mls/hr CEFTRIAXONE 1 G/50 ML PREMIX (Ceftriaxone 1 Gm-D5w Bag) 50 mls @ 100 mls/hr IVPB DAILY [facility] Last Admin: 04/24/17 10:51 Dose: 100 mls/hr Nicotine (Nicoderm Patch -) 21 mg TD DAILY [facility] Last Admin: 04/24/17 10:49 Dose: 21 mg Oseltamivir Phosphate (Tamiflu -) 30 mg PO BID [facility] Stop: 04/27/17 09:59 Last Admin: 04/24/17 10:50 Dose: 30 mg - Objective Vital Signs: Vital Signs Temperature 98.7 F 04/24/17 09:31 Pulse Rate 82 04/24/17 05:59 Respiratory Rate 18 04/24/17 09:48 Blood Pressure 149/83 04/24/17 09:31 O2 Sat by Pulse Oximetry (%) 96 04/23/17 09:00 Constitutional: Yes: No Distress, Calm, Cachectic Eyes: Yes: Conjunctiva Clear, EOM Intact HENT: Yes: Atraumatic, Normocephalic Neck: Yes: Supple, Trachea Midline Cardiovascular: Yes: Regular Rate and Rhythm Respiratory: Yes: Regular, CTA Bilaterally Gastrointestinal: Yes: Normal Bowel Sounds, Soft Edema: No Neurological: Yes: Alert, Oriented Psychiatric: Yes: Alert, Oriented Labs: CBC, BMP 04/22/17 05:35 04/22/17 05:35 - ....Imaging Chest X-ray: Report Reviewed, Image Reviewed EKG: Report Reviewed, Image Reviewed Other: Report Reviewed, Image Reviewed Assessment/Plan 76 male with h/o prostate CA, COPD, cardiomyopathy now admitted with a syncopal episode in the setting of acute Influenza A with fever and pre-renal failure secondary to dehydration precipitated by infection. Doubt syncopal episode was cardiac in nature, however, he does have an underlying cardiomyopathy for which outpatient catheterization was recommended and is in the process of being arranged to rule out chronic ischemic disease. 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 Cont norvasc for HTN Outpatient follow up: PHTN likely chronic due to smoking and COPD. No additional inpatient cardiac work up planned at this time.
--- NOTE | 2017-04-24 16:02 | PN ---
Progress Note, Physician History of Present Illness: doing well element of confusion according to wif better than yesterday - Current Medication List Current Medications: Active Medications Acetaminophen (Tylenol -) 650 mg PO Q6H PRN PRN Reason: FEVER Last Admin: 04/22/17 01:39 Dose: 650 mg Amlodipine Besylate (Norvasc -) 10 mg PO DAILY [facility] Last Admin: 04/24/17 10:49 Dose: 10 mg Aspirin (Asa -) 81 mg PO DAILY [facility] Last Admin: 04/24/17 10:49 Dose: 81 mg Dextrose/Sodium Chloride (D5-1/2ns -) 1,000 mls @ 75 mls/hr IV ASDIR [facility] Last Admin: 04/23/17 18:39 Dose: 75 mls/hr CEFTRIAXONE 1 G/50 ML PREMIX (Ceftriaxone 1 Gm-D5w Bag) 50 mls @ 100 mls/hr IVPB DAILY [facility] Last Admin: 04/24/17 10:51 Dose: 100 mls/hr Nicotine (Nicoderm Patch -) 21 mg TD DAILY [facility] Last Admin: 04/24/17 10:49 Dose: 21 mg Oseltamivir Phosphate (Tamiflu -) 30 mg PO BID [facility] Stop: 04/27/17 09:59 Last Admin: 04/24/17 10:50 Dose: 30 mg - Objective Vital Signs: Vital Signs Temperature 97.5 F L 04/24/17 14:51 Pulse Rate 97 H 04/24/17 14:51 Respiratory Rate 18 04/24/17 14:51 Blood Pressure 124/79 04/24/17 14:51 O2 Sat by Pulse Oximetry (%) 96 04/23/17 09:00 Constitutional: Yes: No Distress, Calm Cardiovascular: Yes: Regular Rate and Rhythm Respiratory: Yes: Regular, CTA Bilaterally Gastrointestinal: Yes: Normal Bowel Sounds, Soft Musculoskeletal: Yes: WNL Extremities: Yes: WNL Neurological: Yes: Alert, Oriented Psychiatric: Yes: Alert, Oriented Labs: CBC, BMP 04/22/17 05:35 04/22/17 05:35 Assessment/Plan patient was very confused last night,now looks completely normal influenza a fever near syncope confusion plan conitnue ceftriaxone continue current mgmt will stop abx tomorrow if patient remains stable
[2017-04-24] MEDS: DEXTROSE 5%-0.45% SALINE 1,000 ML IV SCH (21:05)
--- NOTE | 2017-04-24 22:38 | PN ---
Progress Note, Physician History of Present Illness: No new complaints - Current Medication List Current Medications: Active Medications Acetaminophen (Tylenol -) 650 mg PO Q6H PRN PRN Reason: FEVER Last Admin: 04/22/17 01:39 Dose: 650 mg Amlodipine Besylate (Norvasc -) 10 mg PO DAILY [facility] Last Admin: 04/24/17 10:49 Dose: 10 mg Aspirin (Asa -) 81 mg PO DAILY [facility] Last Admin: 04/24/17 10:49 Dose: 81 mg Dextrose/Sodium Chloride (D5-1/2ns -) 1,000 mls @ 75 mls/hr IV ASDIR [facility] Last Admin: 04/24/17 21:05 Dose: Not Given CEFTRIAXONE 1 G/50 ML PREMIX (Ceftriaxone 1 Gm-D5w Bag) 50 mls @ 100 mls/hr IVPB DAILY [facility] Last Admin: 04/24/17 10:51 Dose: 100 mls/hr Nicotine (Nicoderm Patch -) 21 mg TD DAILY [facility] Last Admin: 04/24/17 10:49 Dose: 21 mg Oseltamivir Phosphate (Tamiflu -) 30 mg PO BID [facility] Stop: 04/27/17 09:59 Last Admin: 04/24/17 21:05 Dose: 30 mg - Objective Vital Signs: Vital Signs Temperature 98.7 F 04/24/17 18:11 Pulse Rate 87 04/24/17 18:11 Respiratory Rate 20 04/24/17 18:11 Blood Pressure 133/74 04/24/17 18:11 O2 Sat by Pulse Oximetry (%) 96 04/23/17 09:00 Neck: Yes: WNL, Supple Cardiovascular: Yes: WNL, Regular Rate and Rhythm Respiratory: Yes: WNL, Regular, CTA Bilaterally Gastrointestinal: Yes: WNL, Normal Bowel Sounds, Soft Labs: CBC, BMP 04/22/17 05:35 04/22/17 05:35 Problem List - Problems (1) Fever Assessment/Plan: Resolved Cont IV ceftriaxone As per ID Possible dc planning in am Code(s): R50.9 - FEVER, UNSPECIFIED (2) Syncope Assessment/Plan: W/U negative DC tele Code(s): R55 - SYNCOPE AND COLLAPSE Qualifiers: Encounter type: initial encounter (3) Influenza A Code(s): J10.1 - FLU DUE TO OTH IDENT INFLUENZA VIRUS W OTH RESP MANIFEST (4) HTN (hypertension) Code(s): I10 - ESSENTIAL (PRIMARY) HYPERTENSION (5) Acute renal failure Code(s): N17.9 - ACUTE KIDNEY FAILURE, UNSPECIFIED Qualifiers: Acute renal failure type: unspecified Qualified Code(s): N17.9 - Acute kidney failure, unspecified
[2017-04-25 06:44] VITALS: TEMP 98
[2017-04-25] MEDS: amLODIPine BESYLATE 10 MG TABLET (FP) PO SCH (09:33)
[2017-04-25] MEDS: CEFTRIAXONE 1 G/50 ML PREMIX 50 ML IVPB SCH (09:33)
[2017-04-25] MEDS: NICOTINE 21 MG/24 HOURS TOPICAL PATCH TD SCH (09:33)
[2017-04-25] MEDS: ASPIRIN 81 MG CHEWABLE TABLETS PO SCH (09:33)
[2017-04-25] MEDS: OSELTAMIVIR PHOSPHATE 30 MG CAPSULE PO SCH (09:34)
[2017-04-25 11:37] VITALS: BP 142/96; PULSE 100
[2017-04-25] MEDS: DEXTROSE 5%-0.45% SALINE 1,000 ML IV SCH (12:25)
--- NOTE | 2017-04-25 15:05 | PN ---
Progress Note, Physician History of Present Illness: patient stable no new issues - Current Medication List Current Medications: Active Medications Acetaminophen (Tylenol -) 650 mg PO Q6H PRN PRN Reason: FEVER Last Admin: 04/22/17 01:39 Dose: 650 mg Amlodipine Besylate (Norvasc -) 10 mg PO DAILY [facility] Last Admin: 04/25/17 09:33 Dose: 10 mg Aspirin (Asa -) 81 mg PO DAILY [facility] Last Admin: 04/25/17 09:33 Dose: 81 mg Dextrose/Sodium Chloride (D5-1/2ns -) 1,000 mls @ 75 mls/hr IV ASDIR [facility] Last Admin: 04/25/17 12:25 Dose: 75 mls/hr Nicotine (Nicoderm Patch -) 21 mg TD DAILY [facility] Last Admin: 04/25/17 09:33 Dose: 21 mg Oseltamivir Phosphate (Tamiflu -) 30 mg PO BID [facility] Stop: 04/27/17 09:59 Last Admin: 04/25/17 09:34 Dose: 30 mg - Objective Vital Signs: Vital Signs Temperature 98.0 F 04/25/17 10:00 Pulse Rate 100 H 04/25/17 10:00 Respiratory Rate 18 04/25/17 10:00 Blood Pressure 142/96 04/25/17 10:00 O2 Sat by Pulse Oximetry (%) 97 04/25/17 10:00 Constitutional: Yes: No Distress, Calm, Thin Cardiovascular: Yes: Regular Rate and Rhythm Respiratory: Yes: Regular Gastrointestinal: Yes: Normal Bowel Sounds, Soft Musculoskeletal: Yes: WNL Extremities: Yes: WNL Neurological: Yes: Alert, Oriented Labs: CBC, BMP 04/22/17 05:35 04/22/17 05:35 Assessment/Plan Problem List - Problems (1) Fever Code(s): R50.9 - FEVER, UNSPECIFIED (2) Syncope Code(s): R55 - SYNCOPE AND COLLAPSE Qualifiers: Encounter type: initial encounter (3) Influenza A Code(s): J10.1 - FLU DUE TO OTH IDENT INFLUENZA VIRUS W OTH RESP MANIFEST (4) HTN (hypertension) Code(s): I10 - ESSENTIAL (PRIMARY) HYPERTENSION (5) Acute renal failure Code(s): N17.9 - ACUTE KIDNEY FAILURE, UNSPECIFIED Qualifiers: Acute renal failure type: unspecified Qualified Code(s): N17.9 - Acute kidney failure, unspecified plan stopped abx complete tamiflu course rest as per primary team
--- NOTE | 2017-04-25 15:22 | DS ---
Physical Exam: SUBJECTIVE: Patient seen and examined OBJECTIVE: Vital Signs Period Temp Pulse Resp BP Sys/Zafar Pulse Ox Last 24 Hr 98.0 F-98.7 F 87-115 18-20 129-145/74-96 96-97 PHYSICAL EXAM GENERAL: The patient is awake, alert, and fully oriented, in no acute distress. HEAD: Normal with no signs of trauma. EYES: PERRL, extraocular movements intact, sclera anicteric, conjunctiva clear. ENT: Ears normal, nares patent, oropharynx clear without exudates, moist mucous membranes. NECK: Trachea midline, full range of motion, supple. LUNGS: Breath sounds equal, clear to auscultation bilaterally, no wheezes, no crackles, no accessory muscle use. HEART: Regular rate and rhythm, S1, S2 without murmur, rub or gallop. ABDOMEN: Soft, nontender, nondistended, normoactive bowel sounds, no guarding, no rebound, no hepatosplenomegaly, no masses. EXTREMITIES: 2+ pulses, warm, well-perfused, no edema. NEUROLOGICAL: Cranial nerves II through XII grossly intact. Normal speech, gait not observed. PSYCH: Normal mood, normal affect. SKIN: Warm, dry, normal turgor, no rashes or lesions noted. LABS HOSPITAL COURSE: Date of Admission:04/21/17 Date of Discharge: 04/25/17 Discharge Summary Reason For Visit: INFLUENZA A ,ACUTE RENAL FAILURE Current Active Problems Acute renal failure (Acute) Cardiomyopathy (Acute) Fever (Acute) HTN (hypertension) (Acute) Influenza A (Acute) Syncope (Acute) Condition: Fair - Instructions Referrals: Nile Lu MD [Primary Care Provider] - - Home Medications Comprehensive Discharge Medication List: Ambulatory Orders Acetaminophen [Tylenol .Regular Strength -] 650 mg PO Q6H PRN tablet 04/25/17 Amlodipine Besylate [Norvasc -] 10 mg PO DAILY #30 tablet 04/25/17 Aspirin [ASA -] 81 mg PO DAILY tab.chew 04/25/17 Lactose-Reduced Food [Ensure Enlive] 1 bottle PO DAILY #24 bottle 04/25/17 Nicotine Patch [Nicoderm Patch -] 21 mg TD DAILY #0 patch 04/25/17 Oseltamivir Phosphate [Tamiflu -] 30 mg PO BID #3 capsule 04/25/17
--- NOTE | 2017-05-23 23:42 | DS ---
Physical Examination Vital Signs: Vital Signs Temperature 98.0 F 04/25/17 10:00 Pulse Rate 100 H 04/25/17 10:00 Respiratory Rate 18 04/25/17 10:00 Blood Pressure 142/96 04/25/17 10:00 O2 Sat by Pulse Oximetry (%) 97 04/25/17 10:00 Labs: CBC, BMP 04/22/17 05:35 04/22/17 05:35 Discharge Summary Reason For Visit: INFLUENZA A ,ACUTE RENAL FAILURE (1) Fever (2) Syncope (3) Influenza A (4) HTN (hypertension) (5) Acute renal failure Hospital Course: 76-year-old male with [id number] history, CAD, seen for near syncope. Patient was waking up in his USOH while shaving at the bathroom sink, he became lightheaded and fell to the ground landing in mostly a sitting position landed up against the wall. Also dry cough with hoarseness and fever of 102F. He was found to have influenza A and developed ARF. IVF and anti-viral were given. Pt improved and was d/c to f/u PCP as out pt. Condition: Fair - Instructions Referrals: Nile Lu MD [Primary Care Provider] - Disposition: HOME - Home Medications Comprehensive Discharge Medication List: Ambulatory Orders Acetaminophen [Tylenol .Regular Strength -] 650 mg PO Q6H PRN tablet 04/25/17 Amlodipine Besylate [Norvasc -] 10 mg PO DAILY #30 tablet 04/25/17 Aspirin [ASA -] 81 mg PO DAILY tab.chew 04/25/17 Lactose-Reduced Food [Ensure Enlive] 1 bottle PO DAILY #24 bottle 04/25/17 Nicotine Patch [Nicoderm Patch -] 21 mg TD DAILY #14 patch 04/25/17 Oseltamivir Phosphate [Tamiflu -] 30 mg PO BID #3 capsule 04/25/17
== END 2017-04-25 15:52 | disposition home or self-care (01) | DRG 683 ==
LOC: JER 08:16 → JERBED 11:57 → J6S 20:37 → J4S 20:56 → JERBED 21:06 → J4S 22:50
PROVIDERS: ADMIT Internal Medicine; ATTEND Internal Medicine
DX: N17.9 Acute kidney failure, unspecified (principal); I42.9 Cardiomyopathy, unspecified; J09.X2 Influenza due to identified novel influenza A virus with other respiratory manifestations; I10 Essential (primary) hypertension; R55 Syncope and collapse; R50.9 Fever, unspecified; E86.0 Dehydration; Z87.891 Personal history of nicotine dependence
CPT/HCPCS: 36415; 70450-TC; 71046-TC-FY; 80053; 81003; 81015; 82550; 82553; 83880; 84484; 85025; 87040; 87086; 87804; 93005; 93010; 93306-TC; 99285-25

== ENCOUNTER 2023-05-14 13:04 | Inpatient (IN) | payer OTHER ==
[2023-05-14 14:15] LABS: BASO % 0.5 % (0-2.0); EOS % 0.2 % (0-4.5); HEMATOCRIT 39.3 % (35.4-49); HEMOGLOBIN 13.4 GM/dL (11.7-16.9); LYMPH % 13.5 % (8-40); MCH 30.6 pg (25.7-33.7); MEAN CELL VOLUME 90.2 fl (80-96); MEAN PLT VOLUME 7.6 fl (7.5-11.1); MONO % 9.7 % (3.8-10.2); NEUT % 76.1 % (42.8-82.8); PLATELET COUNT 193 10^3/uL (134-434); RBC 4.36 M/mm3 (4.00-5.60); RDW 13.8 % (11.9-15.9); WHITE BLOOD COUNT 7.8 K/mm3 (4.0-10.0)
[2023-05-14 14:38] LABS: POTASSIUM 5.1 mmol/L (3.5-5.1)
[2023-05-14 14:40] LABS: BLOOD UREA NITROGEN 33.9 mg/dL (7-18); CALCIUM 10.7 mg/dL (8.5-10.1); MAGNESIUM 2.4 mg/dL (1.8-2.4)
[2023-05-14 14:43] LABS: ALBUMIN 4.2 g/dl (3.4-5.0); CREATININE 2.1 mg/dL (0.55-1.3); PHOSPHOROUS 3.6 mg/dL (2.5-4.9)
[2023-05-14 14:45] LABS: BILIRUBIN,TOTAL 0.6 mg/dL (0.2-1)
[2023-05-14 14:58] LABS: ACTIVATED PTT 23.9 SECONDS (25.2-36.5)
[2023-05-14 15:07] LABS: INR 1.08 (0.83-1.09); PROTHROMBIN TIME (PATIENT) 12.5 SEC (9.7-13.0)
[2023-05-14] MEDS: LACTATED RINGERS SOLUTION 1,000 ML/1,000 ML INFUS.BAG IV STA (15:16)
[2023-05-14 18:30] LABS: EPI CELLS 10 /uL (0-25.1); HYALINE CASTS 0 /uL (0-3.1); URINE APPEARANCE CLEAR; URINE BACTERIA 25 /uL (0-1359); URINE BILIRUBIN NEGATIVE (NEGATIVE); URINE COLOR YELLOW; URINE GLUCOSE (UA) NEGATIVE (NEGATIVE); URINE KETONE NEGATIVE (NEGATIVE); URINE LEUK ESTERASE NEGATIVE (NEGATIVE); URINE NITRITE NEGATIVE (NEGATIVE); URINE PROTEIN 1+ (NEGATIVE); URINE RBC 22 /uL (0-23.9); URINE UROBILINOGEN 0.2 mg/dL (0.2-1.0); URINE WBC 10 /uL (0-25.8)
[2023-05-14] MEDS: HEPARIN NA (PORCINE) 5,000 UNITS/ML 1ML VIAL SQ SCH (21:46)
[2023-05-15] MEDS: DEXTROSE 5%-0.45% SALINE 1,000 ML IV SCH (05:13)
[2023-05-15 07:30] LABS: BASO % 0.6 % (0-2.0); EOS % 0.3 % (0-4.5); HEMOGLOBIN 11.9 GM/dL (11.7-16.9); LYMPH % 17.9 % (8-40); MCH 29.7 pg (25.7-33.7); MCHC 33.1 g/dl (32.0-35.9); MEAN CELL VOLUME 89.9 fl (80-96); MEAN PLT VOLUME 8.3 fl (7.5-11.1); NEUT % 71.2 % (42.8-82.8); PLATELET COUNT 178 10^3/uL (134-434); RBC 4.01 M/mm3 (4.00-5.60); RDW 13.7 % (11.9-15.9); WHITE BLOOD COUNT 8.5 K/mm3 (4.0-10.0)
[2023-05-15 07:44] LABS: POTASSIUM 4.9 mmol/L (3.5-5.1)
[2023-05-15 07:46] LABS: CALCIUM 9.5 mg/dL (8.5-10.1)
[2023-05-15 07:47] LABS: ALBUMIN 3.4 g/dl (3.4-5.0); BLOOD UREA NITROGEN 33.5 mg/dL (7-18)
[2023-05-15 07:49] LABS: CHOLESTEROL 128 mg/dL (50-200)
[2023-05-15 07:50] LABS: BILIRUBIN,TOTAL 0.8 mg/dL (0.2-1); CREATININE 1.8 mg/dL (0.55-1.3); HDL CHOLESTEROL 75 mg/dL (40-60); TOT PROT 6.5 g/dl (6.4-8.2)
[2023-05-15 07:51] LABS: LDL CHOLESTEROL (ONLY SJRH) 50 mg/dL (5-100)
[2023-05-15] MEDS: ASPIRIN 81 MG CHEWABLE TABLETS PO SCH (09:10)
[2023-05-15] MEDS: amLODIPine BESYLATE 5 MG TABLET (FP) PO SCH (09:11)
[2023-05-15] MEDS ORDERED: amLODIPine BESYLATE 10 MG TABLET (FP) PO SCH (10:00)
[2023-05-15] MEDS: DEXTROSE 50%-WATER 25 GM/50 ML DISP.SYRIN IVPUSH ONE (12:53)
[2023-05-16 23:06] VITALS: BMI 15.5
[2023-05-17 08:25] LABS: POTASSIUM 4.7 mmol/L (3.5-5.1)
[2023-05-17 08:33] LABS: CALCIUM 9.2 mg/dL (8.5-10.1)
[2023-05-17 08:34] LABS: ALBUMIN 3.3 g/dl (3.4-5.0); BLOOD UREA NITROGEN 28.9 mg/dL (7-18)
[2023-05-17 08:36] LABS: CREATININE 1.5 mg/dL (0.55-1.3)
[2023-05-17 08:37] LABS: BILIRUBIN,TOTAL 0.6 mg/dL (0.2-1); TOT PROT 6.5 g/dl (6.4-8.2)
[2023-05-17 09:08] LABS: BASO % 0.7 % (0-2.0); EOS % 1.3 % (0-4.5); HEMATOCRIT 36.9 % (35.4-49); HEMOGLOBIN 12.5 GM/dL (11.7-16.9); LYMPH % 20.8 % (8-40); MCH 30.4 pg (25.7-33.7); MCHC 33.9 g/dl (32.0-35.9); MEAN CELL VOLUME 89.5 fl (80-96); MEAN PLT VOLUME 8.7 fl (7.5-11.1); MONO % 13.3 % (3.8-10.2); NEUT % 63.9 % (42.8-82.8); PLATELET COUNT 179 10^3/uL (134-434); RBC 4.12 M/mm3 (4.00-5.60); RDW 13.9 % (11.9-15.9); WHITE BLOOD COUNT 6.4 K/mm3 (4.0-10.0)
[2023-05-19] MEDS: metoPROLOL SUCCINATE 25 MG TAB.SR.24H (FP) PO SCH (09:16)
[2023-05-20 10:51] VITALS: BP 132/73; PULSE 79; RESP 18; TEMP 97.1
== END 2023-05-20 11:33 | disposition home or self-care (01) | DRG 682 ==
LOC: JER 13:04 → JERBED 14:03 → J4W 18:48 → OBSVTOIN 19:59
PROVIDERS: ADMIT Internal Medicine; ATTEND Internal Medicine
PROC: 4A10X4Z Monitoring of Central Nervous Electrical Activity, External Approach (ICD-10-PCS; principal; 2023-05-16)
DX: N17.9 Acute kidney failure, unspecified (principal); E43 Unspecified severe protein-calorie malnutrition; I13.0 Hypertensive heart and chronic kidney disease with heart failure and stage 1 through stage 4 chronic kidney disease, or unspecified chronic kidney disease; I42.8 Other cardiomyopathies; I50.32 Chronic diastolic (congestive) heart failure; Z68.1 Body mass index [BMI] 19.9 or less, adult; I25.10 Atherosclerotic heart disease of native coronary artery without angina pectoris; J44.9 Chronic obstructive pulmonary disease, unspecified; E78.5 Hyperlipidemia, unspecified; G30.9 Alzheimer's disease, unspecified; F02.80 Dementia in other diseases classified elsewhere, unspecified severity, without behavioral disturbance, psychotic disturbance, mood disturbance, and anxiety; R55 Syncope and collapse; N18.9 Chronic kidney disease, unspecified; R31.9 Hematuria, unspecified; R00.0 Tachycardia, unspecified
CPT/HCPCS: 0241U-QW; 36415; 70450-TC; 71045-TC-FY; 76775-TC; 80053; 80061; 81003; 82962; 83735; 84100; 84439; 84443; 84484; 85025; 85610; 85730; 87086; 93005; 93010; 93306-TC; 93880-TC; 95816; 97116-GP; 97162-GP; 99285-25; G0378; J1644

== ENCOUNTER 2023-06-27 14:37 | Observation (INO) | payer OTHER ==
[2023-06-27 14:47] VITALS: BMI 15.6
[2023-06-27 15:29] LABS: BASO % 0.3 % (0-2.0); EOS % 0.4 % (0-4.5); HEMATOCRIT 38.5 % (35.4-49); HEMOGLOBIN 12.7 GM/dL (11.7-16.9); LYMPH % 22.4 % (8-40); MCH 30.3 pg (25.7-33.7); MCHC 32.9 g/dl (32.0-35.9); MEAN CELL VOLUME 91.9 fl (80-96); MEAN PLT VOLUME 8.8 fl (7.5-11.1); MONO % 9.9 % (3.8-10.2); PLATELET COUNT 201 10^3/uL (134-434); RBC 4.19 M/mm3 (4.00-5.60); RDW 14.3 % (11.9-15.9); WHITE BLOOD COUNT 4.8 K/mm3 (4.0-10.0)
[2023-06-27 15:38] LABS: INR 1.21 (0.83-1.09)
[2023-06-27 15:51] LABS: POTASSIUM 5.1 mmol/L (3.5-5.1)
[2023-06-27 15:52] LABS: CALCIUM 9.7 mg/dL (8.5-10.1)
[2023-06-27 15:53] LABS: ALBUMIN 3.7 g/dl (3.4-5.0); BLOOD UREA NITROGEN 39.6 mg/dL (7-18)
[2023-06-27 15:56] LABS: CREATININE 2.5 mg/dL (0.55-1.3)
[2023-06-27 15:58] LABS: BILIRUBIN,TOTAL 0.7 mg/dL (0.2-1); TOT PROT 6.9 g/dl (6.4-8.2)
[2023-06-27] MEDS: LACTATED RINGERS SOLUTION 1000 ML INFUS.BAG IV ONE (16:47)
[2023-06-27] MEDS: SODIUM CHLORIDE 0.45% 1,000 ML IV SCH (22:48)
[2023-06-28 01:10] LABS: EPI CELLS 25 /uL (0-25.1); HYALINE CASTS 2 /uL (0-3.1); PH,URINE 5.5 (5.0-8.0); URINE APPEARANCE CLEAR; URINE BACTERIA 0 /uL (0-1359); URINE BILIRUBIN NEGATIVE (NEGATIVE); URINE COLOR ORANGE; URINE GLUCOSE (UA) NEGATIVE (NEGATIVE); URINE KETONE NEGATIVE (NEGATIVE); URINE LEUK ESTERASE TRACE (NEGATIVE); URINE NITRITE NEGATIVE (NEGATIVE); URINE PROTEIN 2+ (NEGATIVE); URINE RBC 12136 /uL (0-23.9); URINE UROBILINOGEN 0.2 mg/dL (0.2-1.0); URINE WBC 140 /uL (0-25.8)
[2023-06-28] MEDS ORDERED: ACETAMINOPHEN 325 MG TABLET (FP) PO PRN (07:02)
[2023-06-28 09:16] LABS: BASO % 0.7 % (0-2.0); EOS % 0.8 % (0-4.5); HEMATOCRIT 43.5 % (35.4-49); HEMOGLOBIN 14.1 GM/dL (11.7-16.9); LYMPH % 23.5 % (8-40); MCH 29.7 pg (25.7-33.7); MCHC 32.5 g/dl (32.0-35.9); MEAN CELL VOLUME 91.5 fl (80-96); MEAN PLT VOLUME 8.5 fl (7.5-11.1); MONO % 8.3 % (3.8-10.2); NEUT % 66.7 % (42.8-82.8); PLATELET COUNT 174 10^3/uL (134-434); RBC 4.76 M/mm3 (4.00-5.60); RDW 13.8 % (11.9-15.9); WHITE BLOOD COUNT 4.9 K/mm3 (4.0-10.0)
[2023-06-28 09:21] LABS: POTASSIUM 4.5 mmol/L (3.5-5.1)
[2023-06-28 09:28] LABS: BLOOD UREA NITROGEN 34.5 mg/dL (7-18)
[2023-06-28 09:31] LABS: PHOSPHOROUS 3.3 mg/dL (2.5-4.9)
[2023-06-28] MEDS: ASPIRIN 81 MG CHEWABLE TABLETS PO SCH (10:14)
[2023-06-28] MEDS: amLODIPine BESYLATE 5 MG TABLET (FP) PO SCH (10:14)
[2023-06-28] MEDS: metoPROLOL SUCCINATE 25 MG TAB.SR.24H (FP) PO SCH (10:14)
[2023-06-29 09:34] LABS: BASO % 0.5 % (0-2.0); EOS % 0.7 % (0-4.5); HEMATOCRIT 38.6 % (35.4-49); HEMOGLOBIN 12.9 GM/dL (11.7-16.9); LYMPH % 19.7 % (8-40); MCH 30.3 pg (25.7-33.7); MCHC 33.5 g/dl (32.0-35.9); MEAN CELL VOLUME 90.5 fl (80-96); MEAN PLT VOLUME 8.6 fl (7.5-11.1); MONO % 9.1 % (3.8-10.2); PLATELET COUNT 159 10^3/uL (134-434); RBC 4.26 M/mm3 (4.00-5.60); RDW 13.7 % (11.9-15.9); WHITE BLOOD COUNT 5.3 K/mm3 (4.0-10.0)
[2023-06-29 09:55] LABS: CALCIUM 9.1 mg/dL (8.5-10.1)
[2023-06-29 09:56] LABS: ALBUMIN 3.4 g/dl (3.4-5.0); BLOOD UREA NITROGEN 26.3 mg/dL (7-18)
[2023-06-29 09:59] LABS: CREATININE 1.7 mg/dL (0.55-1.3)
[2023-06-29 10:01] LABS: CHOLESTEROL 135 mg/dL (50-200); TOT PROT 6.3 g/dl (6.4-8.2)
[2023-06-29 10:03] LABS: LDL CHOLESTEROL (ONLY SJRH) 50 mg/dL (5-100)
[2023-06-29 10:04] LABS: HDL CHOLESTEROL 82 mg/dL (40-60)
[2023-06-30 14:16] VITALS: BP 98/58; PULSE 64; RESP 18; TEMP 98.2
== END 2023-06-30 16:13 | disposition home health service (06) ==
LOC: JER 14:37 → JERBED 16:55 → J5S 21:18
PROVIDERS: ADMIT Student in an Organized Health Care Education/Training Program; ATTEND Internal Medicine
PROC: 3E0337Z Introduction of Electrolytic and Water Balance Substance into Peripheral Vein, Percutaneous Approach (ICD-10-PCS; principal; 2023-06-27)
DX: N17.9 Acute kidney failure, unspecified (principal); G30.9 Alzheimer's disease, unspecified; R77.8 Other specified abnormalities of plasma proteins; J44.9 Chronic obstructive pulmonary disease, unspecified; R26.81 Unsteadiness on feet; C61 Malignant neoplasm of prostate; E78.5 Hyperlipidemia, unspecified; I10 Essential (primary) hypertension; Z87.891 Personal history of nicotine dependence
CPT/HCPCS: 36415; 70450-TC; 71045-TC-FY; 73030-TC-RT-FY; 80048; 80053; 80061; 81003; 83735; 84100; 84439; 84443; 84484; 85025; 85610; 85730; 87086; 93005; 93010; 96360; 97116-GP; 97161-GP; 99285-25; G0378

== ENCOUNTER 2023-07-01 12:17 | Observation (INO) | payer OTHER ==
[2023-07-01 14:11] LABS: BASO % 0.4 % (0-2.0); EOS % 0.1 % (0-4.5); HEMATOCRIT 40.5 % (35.4-49); HEMOGLOBIN 13.4 GM/dL (11.7-16.9); LYMPH % 14.2 % (8-40); MEAN CELL VOLUME 90.7 fl (80-96); MEAN PLT VOLUME 8.3 fl (7.5-11.1); MONO % 8.8 % (3.8-10.2); NEUT % 76.5 % (42.8-82.8); PLATELET COUNT 166 10^3/uL (134-434); RBC 4.47 M/mm3 (4.00-5.60); RDW 14.1 % (11.9-15.9); WHITE BLOOD COUNT 5.9 K/mm3 (4.0-10.0)
[2023-07-01 14:23] LABS: INR 1.17 (0.83-1.09); PROTHROMBIN TIME (PATIENT) 13.5 SEC (9.7-13.0)
[2023-07-01 15:13] LABS: CALCIUM 9.6 mg/dL (8.5-10.1)
[2023-07-01 15:15] LABS: ALBUMIN 3.7 g/dl (3.4-5.0); MAGNESIUM 2.2 mg/dL (1.8-2.4)
[2023-07-01 15:18] LABS: CREATININE 2.1 mg/dL (0.55-1.3)
[2023-07-01 15:20] LABS: BILIRUBIN,TOTAL 0.7 mg/dL (0.2-1)
[2023-07-01] MEDS: SODIUM CHLORIDE 0.9% 500 ML INFUS.BAG IV ONE (20:16)
[2023-07-01] MEDS ORDERED: ACETAMINOPHEN 325 MG TABLET (FP) PO PRN (22:40)
[2023-07-01] MEDS ORDERED: DOCUSATE SODIUM 100 MG CAPSULE (FP) PO PRN (22:40)
[2023-07-02] MEDS: SODIUM CHLORIDE 1,000 ML IV SCH (01:09)
[2023-07-02 03:38] LABS: EPI CELLS 9 /uL (0-25.1); HYALINE CASTS 0 /uL (0-3.1); PH,URINE 5.5 (5.0-8.0); URINE APPEARANCE CLEAR; URINE BACTERIA 7 /uL (0-1359); URINE BILIRUBIN NEGATIVE (NEGATIVE); URINE COLOR YELLOW; URINE GLUCOSE (UA) NEGATIVE (NEGATIVE); URINE KETONE NEGATIVE (NEGATIVE); URINE LEUK ESTERASE NEGATIVE (NEGATIVE); URINE NITRITE NEGATIVE (NEGATIVE); URINE PROTEIN NEGATIVE (NEGATIVE); URINE RBC 11 /uL (0-23.9); URINE UROBILINOGEN 0.2 mg/dL (0.2-1.0); URINE WBC 7 /uL (0-25.8)
[2023-07-02 06:53] LABS: BASO % 0.5 % (0-2.0); EOS % 0.7 % (0-4.5); HEMATOCRIT 45.5 % (35.4-49); HEMOGLOBIN 14.9 GM/dL (11.7-16.9); LYMPH % 22.6 % (8-40); MCH 29.8 pg (25.7-33.7); MCHC 32.7 g/dl (32.0-35.9); MEAN CELL VOLUME 91.1 fl (80-96); MEAN PLT VOLUME 8.5 fl (7.5-11.1); MONO % 9.5 % (3.8-10.2); NEUT % 66.7 % (42.8-82.8); PLATELET COUNT 148 10^3/uL (134-434); RBC 4.99 M/mm3 (4.00-5.60); RDW 13.6 % (11.9-15.9); WHITE BLOOD COUNT 5.5 K/mm3 (4.0-10.0)
[2023-07-02 07:14] LABS: POTASSIUM 4.4 mmol/L (3.5-5.1)
[2023-07-02 07:19] LABS: BLOOD UREA NITROGEN 24.4 mg/dL (7-18); CALCIUM 9.4 mg/dL (8.5-10.1); MAGNESIUM 1.8 mg/dL (1.8-2.4)
[2023-07-02 07:22] LABS: CREATININE 1.6 mg/dL (0.55-1.3); PHOSPHOROUS 3.5 mg/dL (2.5-4.9)
[2023-07-02] MEDS: amLODIPine BESYLATE 5 MG TABLET (FP) PO SCH (12:57)
[2023-07-02] MEDS: ASPIRIN 81 MG CHEWABLE TABLETS PO SCH (12:57)
[2023-07-02] MEDS: metoPROLOL SUCCINATE 25 MG TAB.SR.24H (FP) PO SCH (12:57)
[2023-07-02 15:31] VITALS: BMI 15.0
[2023-07-03] MEDS: QUEtiapine FUMARATE 25 MG TABLET PO SCH (22:43)
[2023-07-04] MEDS: levETIRAcetam 500 MG TABLET (FP) PO SCH (09:29)
[2023-07-04 10:01] LABS: BASO % 0.5 % (0-2.0); HEMATOCRIT 43.2 % (35.4-49); HEMOGLOBIN 14.1 GM/dL (11.7-16.9); LYMPH % 29.9 % (8-40); MCH 29.7 pg (25.7-33.7); MCHC 32.7 g/dl (32.0-35.9); MEAN CELL VOLUME 90.9 fl (80-96); MEAN PLT VOLUME 9.1 fl (7.5-11.1); MONO % 11.2 % (3.8-10.2); NEUT % 57.4 % (42.8-82.8); PLATELET COUNT 176 10^3/uL (134-434); RBC 4.76 M/mm3 (4.00-5.60); WHITE BLOOD COUNT 5.1 K/mm3 (4.0-10.0)
[2023-07-04 10:30] LABS: POTASSIUM 4.5 mmol/L (3.5-5.1)
[2023-07-04 10:35] LABS: CALCIUM 9.6 mg/dL (8.5-10.1)
[2023-07-04 10:36] LABS: ALBUMIN 3.6 g/dl (3.4-5.0); BLOOD UREA NITROGEN 22.8 mg/dL (7-18)
[2023-07-04 10:38] LABS: CREATININE 1.4 mg/dL (0.55-1.3)
[2023-07-04 10:40] LABS: BILIRUBIN,TOTAL 0.7 mg/dL (0.2-1); TOT PROT 7.1 g/dl (6.4-8.2)
[2023-07-04] MEDS: QUEtiapine FUMARATE 25 MG TABLET PO SCH (21:52)
[2023-07-06 06:45] LABS: BASO % 0.9 % (0-2.0); EOS % 1.2 % (0-4.5); HEMATOCRIT 38.7 % (35.4-49); HEMOGLOBIN 12.6 GM/dL (11.7-16.9); LYMPH % 25.1 % (8-40); MCH 29.7 pg (25.7-33.7); MCHC 32.6 g/dl (32.0-35.9); MEAN CELL VOLUME 91.1 fl (80-96); MONO % 12.1 % (3.8-10.2); NEUT % 60.7 % (42.8-82.8); PLATELET COUNT 163 10^3/uL (134-434); RBC 4.25 M/mm3 (4.00-5.60); WHITE BLOOD COUNT 5.4 K/mm3 (4.0-10.0)
[2023-07-06 07:02] LABS: POTASSIUM 4.6 mmol/L (3.5-5.1)
[2023-07-06 07:04] LABS: BLOOD UREA NITROGEN 37.9 mg/dL (7-18); CALCIUM 9.6 mg/dL (8.5-10.1)
[2023-07-06 07:05] LABS: ALBUMIN 3.2 g/dl (3.4-5.0)
[2023-07-06 07:08] LABS: CREATININE 1.8 mg/dL (0.55-1.3)
[2023-07-06 07:09] LABS: BILIRUBIN,TOTAL 0.4 mg/dL (0.2-1); TOT PROT 6.2 g/dl (6.4-8.2)
[2023-07-06 14:18] VITALS: RESP 18
[2023-07-06] MEDS ORDERED: ACETAMINOPHEN 325 MG TABLET (FP) PO PRN (15:08)
[2023-07-06] MEDS ORDERED: DOCUSATE SODIUM 100 MG CAPSULE (FP) PO PRN (15:08)
[2023-07-06] MEDS: levETIRAcetam 500 MG TABLET (FP) PO SCH (21:44)
[2023-07-06] MEDS: QUEtiapine FUMARATE 25 MG TABLET PO SCH (21:44)
[2023-07-07] MEDS: ASPIRIN 81 MG CHEWABLE TABLETS PO SCH (10:03)
[2023-07-07] MEDS: metoPROLOL SUCCINATE 25 MG TAB.SR.24H (FP) PO SCH (10:03)
[2023-07-07] MEDS: amLODIPine BESYLATE 5 MG TABLET (FP) PO SCH (10:03)
[2023-07-07 13:13] VITALS: BP 119/69; PULSE 88; TEMP 98.3
== END 2023-07-07 13:28 ==
LOC: JER 12:17 → JERBED 16:55 → J4W 22:15 → J5S 07-06 14:52
PROVIDERS: ADMIT Internal Medicine; ATTEND Internal Medicine
PROC: 3E033NZ Introduction of Analgesics, Hypnotics, Sedatives into Peripheral Vein, Percutaneous Approach (ICD-10-PCS; principal; 2023-07-01)
PROC: 3E0337Z Introduction of Electrolytic and Water Balance Substance into Peripheral Vein, Percutaneous Approach (ICD-10-PCS; 2023-07-01)
DX: R55 Syncope and collapse (principal); I10 Essential (primary) hypertension; E78.5 Hyperlipidemia, unspecified; J44.9 Chronic obstructive pulmonary disease, unspecified; G30.0 Alzheimer's disease with early onset; I42.9 Cardiomyopathy, unspecified; N17.9 Acute kidney failure, unspecified; F02.80 Dementia in other diseases classified elsewhere, unspecified severity, without behavioral disturbance, psychotic disturbance, mood disturbance, and anxiety; Z85.46 Personal history of malignant neoplasm of prostate; Z87.440 Personal history of urinary (tract) infections; Z87.891 Personal history of nicotine dependence
CPT/HCPCS: 0241U-QW; 36415; 71045-TC-FY; 80048; 80053; 81003; 82607; 83735; 84100; 84443; 84484; 85025; 85610; 85730; 86780; 87086; 93005; 93010; 96361; 96374; 97116-GP; 97162-GP; 99285-25; G0378

== ENCOUNTER 2023-11-21 08:16 | Inpatient (IN) | payer OTHER ==
[2023-11-21] MEDS ORDERED: DEXTROSE 50%-WATER 25 GM/50 ML DISP.SYRIN ONE (08:36)
[2023-11-21] MEDS: DEXTROSE 50%-WATER 25 GM/50 ML DISP.SYRIN IVPUSH ONE ×3 (08:36→13:14)
[2023-11-21] MEDS: DEXTROSE 50%-WATER - 25 GM/50 ML VIAL IVPUSH ONE ×2 (08:40→08:45)
[2023-11-21 08:42] VITALS: BMI 17.9
[2023-11-21] MEDS ORDERED: NOREPINEPHRINE BITARTRATE/D5W 8 MG/250 ML BAG IVPB ONE (08:42)
[2023-11-21] MEDS ORDERED: CALCIUM GLUCONATE 10% - 1,000 MG/10 ML VIAL ONE (08:45)
[2023-11-21] MEDS: CALCIUM GLUC IN NACL, ISO-OSM 1 GM/50 ML BAG IVPB ONE (08:45)
[2023-11-21] MEDS: DOPAMINE 400 MG/D5W - 400,000 MCG/250 ML INFUS.BAG IVPB SCH (08:45)
[2023-11-21] MEDS: NOREPINEPHRINE 0.9 % NACL 8 MG/250 ML BAG IVPB SCH (08:45)
[2023-11-21] MEDS ORDERED: GLUCAGON 1 MG KIT ONE (08:46)
[2023-11-21] MEDS: DEXTROSE 10%-WATER - 1,000 ML IV SCH (08:55)
[2023-11-21] MEDS: GLUCAGON 1 MG KIT IVPUSH ONE ×2 (09:00→09:10)
[2023-11-21 09:01] LABS: INR 1.76 (0.83-1.09); PROTHROMBIN TIME (PATIENT) 19.9 SEC (9.7-13.0)
[2023-11-21 09:02] LABS: VENOUS BASE EXCESS -14.9 mmol/L (-2-2); VENOUS O2 SATURATION 51.5 % (70-80); VENOUS PCO2 53.6 mmHg (38-52); VENOUS PH 7.035 (7.310-7.410)
[2023-11-21 09:04] LABS: ACTIVATED PTT 31.4 SECONDS (25.2-36.5)
[2023-11-21] MEDS ORDERED: VASopressin 20 UNITS/ML VIAL IV ONE ×3 (09:07→17:45)
[2023-11-21 09:18] LABS: CHLORIDE 95 mmol/L (98-107); SODIUM 127 mmol/L (136-145)
[2023-11-21 09:21] LABS: CALCIUM 8.7 mg/dL (8.5-10.1); MCH 27.1 pg (25.7-33.7); MCHC 27.2 g/dl (32.0-35.9); MEAN CELL VOLUME 99.7 fl (80-96); MEAN PLT VOLUME 8.7 fl (7.5-11.1); PLATELET COUNT 312 10^3/uL (134-434); RBC 1.91 M/mm3 (4.00-5.60); RDW 18.4 % (11.9-15.9); WHITE BLOOD COUNT 28.3 K/mm3 (4.0-10.0)
[2023-11-21 09:22] LABS: ALBUMIN 1.1 g/dl (3.4-5.0); CO2 15 mmol/L (21-32); GLUCOSE,RANDOM 204 mg/dL (74-106)
[2023-11-21 09:25] LABS: ANION GAP 17 mmol/L (4-13); BLOOD UREA NITROGEN 149.2 mg/dL (7-18); CREATININE 2.6 mg/dL (0.55-1.3); POTASSIUM 7.7 mmol/L (3.5-5.1); SGOT/AST 64 U/L (15-37); SGPT/ALT 35 U/L (13-61)
[2023-11-21 09:26] LABS: BILIRUBIN,TOTAL 0.3 mg/dL (0.2-1); HEMOGLOBIN 5.2 GM/dL (11.7-16.9); TOT PROT 5.4 g/dl (6.4-8.2)
[2023-11-21 09:27] LABS: ALK PHOS 104 U/L (45-117)
[2023-11-21 09:48] LABS: ANISOCYTOSIS 0; MACROCYTOSIS 0
[2023-11-21] MEDS: SODIUM ZIRCONIUM CYCLOSILICATE (LOKELMA) 10 GM PACKET PO SCH (10:00)
[2023-11-21 10:06] LABS: LACTIC ACID 8.9 mmol/L (0.4-2.0)
[2023-11-21] MEDS ORDERED: NOREPINEPHRINE BITARTRATE 4,000 MCG in DEXTROSE 5%-WATER - 496 ML IV SCH (11:45)
[2023-11-21] MEDS: SODIUM CHLORIDE 2,000 ML IV STA (12:22)
[2023-11-21] MEDS ORDERED: LIDOCAINE HCL 2% 100 MG/5 ML DISP.SYRIN ONE (12:28)
[2023-11-21 12:46] LABS: CHLORIDE 92 mmol/L (98-107); SODIUM 126 mmol/L (136-145)
[2023-11-21 12:47] LABS: CALCIUM 8.7 mg/dL (8.5-10.1)
[2023-11-21 12:48] LABS: CO2 16 mmol/L (21-32)
[2023-11-21 12:51] LABS: CREATININE 2.7 mg/dL (0.55-1.3)
[2023-11-21 13:01] LABS: ANION GAP 18 mmol/L (4-13); BLOOD UREA NITROGEN 144.2 mg/dL (7-18); GLUCOSE,RANDOM 478 mg/dL (74-106); POTASSIUM 6.5 mmol/L (3.5-5.1)
[2023-11-21] MEDS: INSULIN REGULAR HUMAN 100 UNITS/ML *VIAL IVPUSH ONE ×2 (13:13→16:00)
[2023-11-21] MEDS: CALCIUM GLUCONATE IN NACL 1 GM/50 ML BAG IVPB ONE (13:19)
[2023-11-21] MEDS ORDERED: CALCIUM GLUCONATE 10% - 1,000 MG/10 ML VIAL IVPB ONE (13:30)
[2023-11-21] MEDS: VANCOMYCIN 1,000 MG in DEXTROSE 5%-WATER - 250 ML IVPB ONE (13:33)
[2023-11-21] MEDS: ALBUTEROL SULFATE 0.021% (0.63 MG/3 ML) VIAL.NEB NEB ONE (14:15)
[2023-11-21] MEDS: FENTANYL NS IVPB 500 MCG/100 ML BAG IVPB SCH (14:37)
[2023-11-21] MEDS: MEROPENEM 1 GM in DEXTROSE 5%-WATER 100 ML IVPB SCH (14:41)
[2023-11-21] MEDS: SODIUM ZIRCONIUM CYCLOSILICATE (LOKELMA) 5 GM PACKET GT ONE (15:00)
[2023-11-21] MEDS: SODIUM CHLORIDE 1,000 ML IV SCH (15:27)
[2023-11-21] MEDS: SODIUM POLYSTYRENE SULFONATE 15 GM/60 ML BOTTLE RC ONE (15:44)
[2023-11-21] MEDS: VANCOMYCIN/WATER 1250 MG 1,250 MG/250 ML BAG IVPB ONE (16:05)
[2023-11-21] MEDS: INSULIN (LEVEMIR) 100 UNITS/ML UNITS SQ ONE (16:07)
[2023-11-21] MEDS: MUPIROCIN 2% TOPICAL OINTMENT FOR DECOLONIZATION NS SCH (16:56)
[2023-11-21 17:43] LABS: CHLORIDE 98 mmol/L (98-107); SODIUM 131 mmol/L (136-145)
[2023-11-21 17:44] LABS: CALCIUM 8.9 mg/dL (8.5-10.1)
[2023-11-21 17:45] LABS: CO2 15 mmol/L (21-32); GLUCOSE,RANDOM 208 mg/dL (74-106)
[2023-11-21] MEDS: VASopressin 40 UNITS/100 ML BAG IV SCH (17:45)
[2023-11-21] MEDS: SODIUM CHLORIDE 1,000 ML IV STA (17:45)
[2023-11-21 17:48] LABS: CREATININE 2.5 mg/dL (0.55-1.3)
[2023-11-21 17:50] LABS: ANION GAP 18 mmol/L (4-13); POTASSIUM 6.4 mmol/L (3.5-5.1)
[2023-11-21 17:54] LABS: LACTIC ACID 10.9 mmol/L (0.4-2.0)
[2023-11-21] MEDS: EPINEPHrine INTRACARD 1:10,000 1 MG/10 ML DISP.SYRIN IVPUSH ONE (18:01)
[2023-11-21 18:17] VITALS: BP 119/65; PULSE 77
[2023-11-21] MEDS: PIPERACILLIN/TAZOB 4.5 GM 4.5 GM in DEXTROSE 5%-WATER - 100 ML IVPB ONE (18:17)
[2023-11-21 18:38] VITALS: RESP 22; TEMP 92.2
[2023-11-21] MEDS ORDERED: CHLORHEXIDINE GLUCONATE 4% CLEANSER FOR DECOLONIZATION TP SCH (22:00)
[2023-11-22] MEDS ORDERED: MEROPENEM 500 MG in DEXTROSE 5%-WATER 100 ML IVPB SCH (02:00)
== END 2023-11-21 20:19 | disposition expired | DRG 871 ==
LOC: JER 08:16 → JERBED 09:33 → JICU 11:06
PROVIDERS: ADMIT Internal Medicine Pulmonary Disease; ATTEND Internal Medicine Pulmonary Disease
PROC: 0T9B70Z Drainage of Bladder with Drainage Device, Via Natural or Artificial Opening (ICD-10-PCS; principal; 2023-11-21)
PROC: 5A1935Z Respiratory Ventilation, Less than 24 Consecutive Hours (ICD-10-PCS; 2023-11-21)
PROC: 5A12012 Performance of Cardiac Output, Single, Manual (ICD-10-PCS; 2023-11-21)
PROC: 30233N1 Transfusion of Nonautologous Red Blood Cells into Peripheral Vein, Percutaneous Approach (ICD-10-PCS; 2023-11-21)
DX: A41.89 Other specified sepsis (principal); J96.20 Acute and chronic respiratory failure, unspecified whether with hypoxia or hypercapnia; R65.21 Severe sepsis with septic shock; N17.9 Acute kidney failure, unspecified; K92.2 Gastrointestinal hemorrhage, unspecified; D62 Acute posthemorrhagic anemia; K56.609 Unspecified intestinal obstruction, unspecified as to partial versus complete obstruction; Z68.1 Body mass index [BMI] 19.9 or less, adult; I25.10 Atherosclerotic heart disease of native coronary artery without angina pectoris; I10 Essential (primary) hypertension; E78.5 Hyperlipidemia, unspecified; I12.9 Hypertensive chronic kidney disease with stage 1 through stage 4 chronic kidney disease, or unspecified chronic kidney disease; N18.9 Chronic kidney disease, unspecified; J44.9 Chronic obstructive pulmonary disease, unspecified; I95.9 Hypotension, unspecified; R57.1 Hypovolemic shock; E87.5 Hyperkalemia; Z85.46 Personal history of malignant neoplasm of prostate; Z93.0 Tracheostomy status; R33.9 Retention of urine, unspecified
CPT/HCPCS: 0241U-QW; 36415; 36430; 71045-TC-FY; 80048; 80053; 82272; 82803; 82962; 83605; 84484; 85025; 85610; 85730; 86850; 86900; 86901; 86922; 87040; 94002; 94640; 99291; J3490; P9058